=== PATIENT | male | born 2000 | race Caucasian/White ===

== ENCOUNTER 2021-06-08 15:19 | Emergency (ER) | payer OTHER, SELFPAY ==
--- NOTE | ~2021-06-08 | XR_ITS ---
EXAMINATION: XR ankle RT min 3V INDICATION: Right ankle pain TECHNIQUE: Four views of the right ankle are obtained. COMPARISON: None available FINDINGS: There is lateral soft tissue swelling of ankle. Bone alignment is normal. There is no fract ure. The ankle mortise is intact. IMPRESSION: 1. Soft tissue swelling without acute osseous abnormality. Reviewed, dictated and finalized at location A.
[2021-06-08 15:22] VITALS: BP 99/70; PULSE 95; RESP 20; TEMP 36.9; O2SAT 99
--- NOTE | 2021-06-08 16:07 | ED_ITS ---
HPI - Extremity Injury (Lower) General Chief Complaint: Extremity Injury, Lower Stated Complaint: right ankle injury Time Seen by Provider: 06/08/21 16:02 Source: RN notes reviewed History of Present Illness HPI Narrative: Patient presents emergency department from home for right ankle pain. Patient states just prior to arrival he was skateboarding when he rolled his right ankle. States he has pain and swelling over the right lateral ankle he denies any other trauma or injury. States he is took no previous medication for the pain. Related Data Allergies Allergy/AdvReac Type Severity Reaction Status Date / Time amoxicillin Allergy Mild Verified 09/17/09 20:56 Review of Systems Review of Systems: Gen.: Denies fevers or chills Musculoskeletal: See HPI Neuro: Denies numbness, tingling, weakness Skin: Denies rash Endo: Denies DM PMFSH Past Medical History Medical History (Updated 06/08/21 @ 16:09 by Ricco Oliva DO) Patient denies significant medical history Social History Social History (Updated 06/08/21 @ 16:08 by Ricco Oliva DO) Smoking status: Never smoker Exam Narrative: APPEARANCE: No acute distress, nontoxic, resting in bed Eyes: EOMI HEENT: Normocephalic, atraumatic, RESPIRATORY: No respiratory distress MUSCULOSKELETAl: Tender palpation of the right lateral ankle with swelling present no tenderness over the anterior medial ankle, no tenderness over the proximal fibula or the base of the fifth metatarsal, dorsalis pedis pulse 2+, neurovascular intact NEURO: Awake and alert. Following commands, speech normal, no focal deficits SKIN:: Warm, dry. Normal Color no rash or lesions Course Course Emergency Course: Patient states he has crutches at home Discussed with patient results of workup and diagnosis. Discussed need for follow-up with primary care, proper use of medication, and reasons to return to the emergency department. Patient understands and agrees to current treatment p jeremi Vital Signs Vital signs: Vital Signs Temperature 98.5 F 06/08/21 15:22 Pulse Rate 95 06/08/21 15:22 Respiratory Rate 20 06/08/21 15:22 Blood Pressure 99/70 L 06/08/21 15:22 Pulse Oximetry 99 06/08/21 15:22 Temperature 98.5 F 06/08/21 15:22 Pulse Rate 95 06/08/21 15:22 Respiratory Rate 20 06/08/21 15:22 Blood Pressure 99/70 L 06/08/21 15:22 Pulse Oximetry 99 06/08/21 15:22 MDM - Extremity Injury (Lower) Imaging Data Radiologist's impression: ITS Impressions Ankle X-Ray 06/08/21 15:36 IMPRESSION: 1. Soft tissue swelling without acute osseous abnormality. Discharge Plan Discharge Clinical Impression: Right ankle sprain Patient Disposition: Home, Self-Care Condition: Stable Instructions: Antibiotic Form, Ankle Sprain (ED), R.I.C.E. Treatment (ED) Additional Instructions: Return for increasing pain numbness or tingling in the extremities or any other symptoms of concern Prescriptions: New ibuprofen [IBU] 600 mg tablet 600 mg PO Q6H PRN (Reason: pain) Qty: 20 RF: 0 Follow-up/Referrals: Marcelo Bergeron MD [Primary Care Provider] - 2 Days Time of Disposition: 16:09
[2021-06-08] MEDS: IBUPROFEN 600 MG TABLET PO (16:11)
[2021-06-08 17:24] VITALS: BP 106/72; PULSE 86; RESP 18; O2SAT 100
== END 2021-06-08 16:40 | disposition home or self-care (01) ==
LOC: ANHED 16:17
PROVIDERS: Emergency Provider Emergency Medicine; PCP Family Medicine Adolescent Medicine
DX: S93.401A Sprain of unspecified ligament of right ankle, initial encounter (principal); X50.9XXA Other and unspecified overexertion or strenuous movements or postures, initial encounter; Y93.51 Activity, roller skating (inline) and skateboarding
CPT/HCPCS: 73610; 99283; A9270